=== PATIENT | female | born 1995 | race Caucasian/White ===

== ENCOUNTER 2017-08-08 18:08 | Emergency (ER) | payer OTHER ==
[~2017-08-08] VITALS: Wt 181.4 kg
[~2017-08-08 18:08] MED LIST: ALBUTEROL0.09 MG/A2 INH; BENTYL10 MG PO; CARAFATE1 G1 PO; CLARITIN-D 24 H1 T24 PO; CLARITIN10 MG PO; DYAZIDE PO; LISINOPRIL10 M1 PO; MOTRIN800 MG PO; PREDNICOT20 MG PO; PREVACID15 MG PO; PREVACID30 MG PO; PRILOSEC20 M1 PO; SUNMARK OMEPRAZ20 M1 PO; ZANTAC 150150 MG PO; ZITHROMAX Z PA250 MG PO; ZOFRAN ODT4 MG SL; ZOFRAN4 MG PO
[2017-08-08 18:15] VITALS: BP 142/87
[2017-08-08] MEDS ORDERED: OMEPRAZOLE DR 40 MG (18:15)
[2017-08-08] MEDS ORDERED: DICYCLOMINE HCL10 MG PO (18:15)
[2017-08-08] MEDS ORDERED: AMITRIPTYLINE25 MG PO (18:15)
[2017-08-08 19:04] LABS: BASO # 0.1 10*3/uL (0.0-0.1); BASO % 0.9 % (0.0-1.0); BILIRUBIN NEGATIVE (NEGATIVE); BLOOD TRACE-INTACT (NEGATIVE); CLARITY CLEAR (CLEAR); COLOR YELLOW (YELLOW); EOS % 0.1 % (1.0-4.0); GLUCOSE NEGATIVE (NEGATIVE); HEMATOCRIT 39.4 % (37.0-47.0); HEMOGLOBIN 12.3 g/dl (12.0-16.0); KETONE NEGATIVE (NEGATIVE); LEUKO ESTERASE NEGATIVE (NEGATIVE); LYMPH # 2.2 10*3/uL (1.3-4.4); LYMPH % 22.4 % (27.0-41.0); MEAN CELL VOLUME 82.9 fl (81.0-99.0); MEAN CORPUSCULAR HGB 25.9 pg (27.0-31.0); MEAN CORPUSCULAR HGB CONC 31.2 g/dl (33.0-37.0); MEAN PLATELET VOLUME 10.9 fl (9.6-12.3); MONO # 0.9 10*3/uL (0.1-1.0); MONO % 9.3 % (3.0-9.0); NEUT # 6.5 10*3/uL (2.3-7.9); NEUT % 66.9 % (47.0-73.0); NITRITE NEGATIVE (NEGATIVE); PH 5.5 (5.0-9.0); PLATELET COUNT AUTOMATED 273 10*3/uL (130-400); RED BLOOD COUNT 4.75 10*6/uL (4.10-5.10); RED CELL DISTRI WIDTH 13.7 % (0-14.5); SPECIFIC GRAVITY >= 1.030 (1.005-1.030); UROBILINOGEN 0.2 E.U./dl (0.2-1.0); WHITE BLOOD COUNT 9.7 10*3/uL (4.8-10.8)
[2017-08-08 19:13] LABS: BACTERIA 1+; EPITHELIAL CELLS 0-2
[2017-08-08 19:19] LABS: ALBUMIN 3.6 gm/dl (3.1-4.5); ALKALINE PHOSPHATASE 133 U/L (45-117); BUN 13 mg/dl (7-24); CHLORIDE 104 mmol/L (98-107); LIPASE 139 U/L (73-393); SGOT/AST 15 IU/L (3-35); SGPT/ALT 27 U/L (12-78); SODIUM 140 mmol/L (136-145); TOTAL PROTEIN 7.6 gm/dL (6.4-8.2)
[2017-08-08] MEDS ORDERED: ZOFRAN ODT4 MG SL (20:35)
== END 2017-08-08 20:41 | disposition home or self-care (01) ==
LOC: ED 18:08
PROVIDERS: Physician Assistant
DX: K52.9 Noninfective gastroenteritis and colitis, unspecified (principal); Z79.899 Other long term (current) drug therapy

== ENCOUNTER 2018-03-15 13:37 | Emergency (ER) | payer SELFPAY ==
[~2018-03-15] VITALS: Ht 182.8 cm; Wt 208.7 kg
[~2018-03-15 13:37] MED LIST changes: +AMITRIPTYLINE25 MG PO; +DICYCLOMINE HCL10 MG PO; +OMEPRAZOLE DR 40 MG
[2018-03-15 13:59] LABS: BASO # 0.1 10*3/uL (0.0-0.1); BASO % 1.2 % (0.0-1.0); EOS % 0.1 % (1.0-4.0); HEMATOCRIT 38.4 % (37.0-47.0); HEMOGLOBIN 11.9 g/dl (12.0-16.0); LYMPH # 2.1 10*3/uL (1.3-4.4); LYMPH % 23.5 % (27.0-41.0); MEAN PLATELET VOLUME 11.7 fl (9.6-12.3); MONO # 0.9 10*3/uL (0.1-1.0); MONO % 10.3 % (3.0-9.0); NEUT # 5.7 10*3/uL (2.3-7.9); NEUT % 64.1 % (47.0-73.0); PLATELET COUNT AUTOMATED 294 10*3/uL (130-400); RED BLOOD COUNT 4.57 10*6/uL (4.10-5.10); RED CELL DISTRI WIDTH 14.5 % (0-14.5); WHITE BLOOD COUNT 8.9 10*3/uL (4.8-10.8)
[2018-03-15 14:11] LABS: ALBUMIN 3.4 gm/dl (3.1-4.5); ALKALINE PHOSPHATASE 117 U/L (45-117); BUN 13 mg/dl (7-24); CHLORIDE 109 mmol/L (98-107); CREATININE 0.68 mg/dL (0.55-1.02); LIPASE 142 U/L (73-393); SGOT/AST 13 IU/L (3-35); SGPT/ALT 27 U/L (12-78); SODIUM 141 mmol/L (136-145)
[2018-03-15 14:16] LABS: BILIRUBIN NEGATIVE (NEGATIVE); BLOOD 3+ (NEGATIVE); CLARITY CLOUDY (CLEAR); COLOR YELLOW (YELLOW); GLUCOSE NEGATIVE (NEGATIVE); KETONE NEGATIVE (NEGATIVE); LEUKO ESTERASE NEGATIVE (NEGATIVE); NITRITE NEGATIVE (NEGATIVE); SPECIFIC GRAVITY 1.015 (1.005-1.030); UROBILINOGEN 0.2 E.U./dl (0.2-1.0)
[2018-03-15 14:26] LABS: BACTERIA 1+; EPITHELIAL CELLS 0-2; RBC TNTC rbc/hpf (0-2); WBC 0-2 wbc/hpf (0-5)
[2018-03-15 14:48] VITALS: BP 134/78
[2018-03-15] MEDS ORDERED: ZOFRAN ODT4 MG SL (15:15)
== END 2018-03-15 15:27 | disposition home or self-care (01) ==
LOC: ED 13:37
PROVIDERS: Nurse Practitioner Family
DX: R11.2 Nausea with vomiting, unspecified (principal); Z79.899 Other long term (current) drug therapy

== ENCOUNTER 2018-03-26 12:24 | Emergency (ER) | payer SELFPAY ==
[~2018-03-26] VITALS: Ht 182.8 cm; Wt 181.4 kg
[2018-03-26 12:26] VITALS: BP 147/122
[2018-03-26] MEDS ORDERED: NAPROSYN500 MG PO (13:20)
== END 2018-03-26 14:12 | disposition home or self-care (01) ==
LOC: ED 12:24
DX: S93.491A Sprain of other ligament of right ankle, initial encounter (principal); Z79.899 Other long term (current) drug therapy; X58.XXXA Exposure to other specified factors, initial encounter; Y93.89 Activity, other specified; Y92.89 Other specified places as the place of occurrence of the external cause; Y99.8 Other external cause status

== ENCOUNTER 2019-08-27 14:56 | Emergency (ER) | payer SELFPAY ==
[~2019-08-27] VITALS: Wt 136.1 kg
[~2019-08-27 14:56] MED LIST changes: +DELTASONE20 M1 PO; +NAPROSYN500 MG PO
[2019-08-27 15:21] LABS: BASO # 0.1 10*3/uL (0.0-0.1); BASO % 1.2 % (0.0-1.0); EOS % 0.1 % (1.0-4.0); HEMATOCRIT 37.9 % (37.0-47.0); HEMOGLOBIN 12.1 g/dl (12.0-16.0); LYMPH % 21.6 % (27.0-41.0); MEAN CELL VOLUME 83.7 fl (81.0-99.0); MEAN CORPUSCULAR HGB 26.7 pg (27.0-31.0); MEAN CORPUSCULAR HGB CONC 31.9 g/dl (33.0-37.0); MEAN PLATELET VOLUME 11.7 fl (9.6-12.3); MONO % 10.8 % (3.0-9.0); PLATELET COUNT AUTOMATED 268 10*3/uL (130-400); RED BLOOD COUNT 4.53 10*6/uL (4.10-5.10); RED CELL DISTRI WIDTH 14.4 % (0-14.5); WHITE BLOOD COUNT 9.2 10*3/uL (4.8-10.8)
[2019-08-27 15:25] VITALS: BP 121/81
[2019-08-27 15:35] LABS: ALBUMIN 3.2 gm/dl (3.1-4.5); ALKALINE PHOSPHATASE 102 U/L (45-117); BUN 14 mg/dl (7-24); CHLORIDE 107 mmol/L (98-107); CREATININE 0.87 mg/dL (0.55-1.02); SGOT/AST 12 IU/L (3-35); SGPT/ALT 24 U/L (12-78); SODIUM 137 mmol/L (136-145); TOTAL PROTEIN 7.3 gm/dL (6.4-8.2)
[2019-08-27 17:20] LABS: BILIRUBIN NEGATIVE (NEGATIVE); BLOOD 3+ (NEGATIVE); CLARITY CLOUDY (CLEAR); COLOR RED (YELLOW); GLUCOSE NEGATIVE (NEGATIVE); KETONE NEGATIVE (NEGATIVE); LEUKO ESTERASE NEGATIVE (NEGATIVE); NITRITE NEGATIVE (NEGATIVE); SPECIFIC GRAVITY 1.025 (1.005-1.030); UROBILINOGEN 0.2 E.U./dl (0.2-1.0)
[2019-08-27 17:21] LABS: RBC TNTC rbc/hpf (0-2)
== END 2019-08-27 17:54 | disposition home or self-care (01) ==
LOC: ED 14:56
PROVIDERS: Physician Assistant
DX: N93.8 Other specified abnormal uterine and vaginal bleeding (principal); R42 Dizziness and giddiness

== ENCOUNTER 2019-11-11 16:36 | Emergency (ER) | payer SELFPAY ==
[~2019-11-11] VITALS: Ht 182.8 cm; Wt 249.5 kg
[2019-11-11 17:01] LABS: BASO % 0.8 % (0.0-1.0); EOS # 0.1 10*3/uL (0.0-0.4); EOS % 2.1 % (1.0-4.0); HEMATOCRIT 37.1 % (37.0-47.0); HEMOGLOBIN 11.5 g/dl (12.0-16.0); LYMPH # 1.8 10*3/uL (1.3-4.4); MEAN CELL VOLUME 84.9 fl (81.0-99.0); MEAN CORPUSCULAR HGB 26.3 pg (27.0-31.0); MEAN PLATELET VOLUME 10.9 fl (9.6-12.3); MONO # 0.8 10*3/uL (0.1-1.0); MONO % 15.4 % (3.0-9.0); NEUT # 2.2 10*3/uL (2.3-7.9); NEUT % 45.5 % (47.0-73.0); PLATELET COUNT AUTOMATED 213 10*3/uL (130-400); RED BLOOD COUNT 4.37 10*6/uL (4.10-5.10); RED CELL DISTRI WIDTH 13.9 % (0-14.5); WHITE BLOOD COUNT 4.9 10*3/uL (4.8-10.8)
[2019-11-11 17:16] LABS: ALBUMIN 3.2 gm/dl (3.1-4.5); ALKALINE PHOSPHATASE 86 U/L (45-117); BUN 12 mg/dl (7-24); CHLORIDE 110 mmol/L (98-107); CREATININE 0.84 mg/dL (0.55-1.02); LIPASE 82 U/L (73-393); POTASSIUM 3.8 mmol/L (3.5-5.1); SGOT/AST 22 IU/L (3-35); SGPT/ALT 36 U/L (12-78); SODIUM 141 mmol/L (136-145)
[2019-11-11 17:19] LABS: BILIRUBIN NEGATIVE (NEGATIVE); BLOOD 3+ (NEGATIVE); CLARITY CLOUDY (CLEAR); COLOR YELLOW (YELLOW); GLUCOSE NEGATIVE (NEGATIVE); KETONE NEGATIVE (NEGATIVE); LEUKO ESTERASE NEGATIVE (NEGATIVE); NITRITE NEGATIVE (NEGATIVE); PH 5.5 (5.0-9.0); SPECIFIC GRAVITY 1.015 (1.005-1.030); UROBILINOGEN 0.2 E.U./dl (0.2-1.0)
[2019-11-11 17:27] LABS: RBC TNTC rbc/hpf (0-2); WBC 0-2 wbc/hpf (0-5)
[2019-11-11 17:28] LABS: BACTERIA TRACE; EPITHELIAL CELLS 0-2
[2019-11-11] MEDS ORDERED: ZOFRAN4 MG PO ×2 (18:23→18:55)
[2019-11-11 18:31] VITALS: BP 122/57
== END 2019-11-11 18:46 | disposition home or self-care (01) ==
LOC: ED 16:36
PROVIDERS: Nurse Practitioner Family
DX: A08.4 Viral intestinal infection, unspecified (principal); R11.2 Nausea with vomiting, unspecified; R19.7 Diarrhea, unspecified; K21.9 Gastro-esophageal reflux disease without esophagitis

== ENCOUNTER 2021-10-10 17:14 | Emergency (ER) | payer OTHER ==
[~2021-10-10] VITALS: Ht 182.8 cm; Wt 260.8 kg
[2021-10-10 18:14] LABS: BASO % 0.6 % (0.0-1.0); HEMATOCRIT 33.3 % (37.0-47.0); LYMPH # 2.1 10*3/uL (1.3-4.4); LYMPH % 39.8 % (27.0-41.0); MEAN CELL VOLUME 65.3 fl (81.0-99.0); MEAN CORPUSCULAR HGB 17.6 pg (27.0-31.0); MEAN PLATELET VOLUME 10.3 fl (9.6-12.3); MONO # 0.9 10*3/uL (0.1-1.0); MONO % 16.1 % (3.0-9.0); NEUT # 2.3 10*3/uL (2.3-7.9); NEUT % 43.3 % (47.0-73.0); PLATELET COUNT AUTOMATED 284 10*3/uL (130-400); WHITE BLOOD COUNT 5.3 10*3/uL (4.8-10.8)
[2021-10-10 18:18] LABS: BILIRUBIN Negative (Negative); BLOOD Negative (Negative); CLARITY Turbid (Clear); COLOR Yellow (Yellow); GLUCOSE Negative (Negative); KETONE Trace (Negative); LEUKO ESTERASE Negative (Negative); NITRITE Negative (Negative); SPECIFIC GRAVITY 1.025 (1.001-1.030); UROBILINOGEN 0.2 E.U./dl (0.0-1.0)
[2021-10-10 18:32] LABS: ALBUMIN 3.2 gm/dl (3.1-4.5); BUN 12 mg/dl (7-24); CHLORIDE 108 mmol/L (98-107); CREATININE 0.84 mg/dL (0.55-1.02); POTASSIUM 3.7 mmol/L (3.5-5.1); SGOT/AST 24 IU/L (3-35); SGPT/ALT 35 U/L (12-78); SODIUM 141 mmol/L (136-145)
[2021-10-10 18:34] LABS: ALKALINE PHOSPHATASE 105 U/L (45-117); TOTAL PROTEIN 7.7 gm/dL (6.4-8.2)
[2021-10-10 18:42] LABS: BACTERIA 4+; EPITHELIAL CELLS 21-30
[2021-10-10 21:31] VITALS: BP 129/63
== END 2021-10-10 21:45 | disposition home or self-care (01) ==
LOC: ED 17:14
PROVIDERS: Nurse Practitioner Family
DX: U07.1 COVID-19 (principal)

== ENCOUNTER 2022-04-09 19:56 | Emergency (ER) | payer OTHER ==
[~2022-04-09] VITALS: Ht 185.4 cm; Wt 246.3 kg
[2022-04-09 20:04] VITALS: BP 128/78
[2022-04-09] MEDS ORDERED: BENZONATATE100 M1 PO (20:35)
[2022-04-09] MEDS ORDERED: AMOXICILLIN500 M2 PO (20:35)
[2022-04-09] MEDS ORDERED: FLONASE ALLERG9.9 ML NAS (20:35)
== END 2022-04-09 20:40 | disposition home or self-care (01) ==
LOC: ED 19:56
DX: J32.8 Other chronic sinusitis (principal); Z90.89 Acquired absence of other organs

== ENCOUNTER 2023-01-11 12:58 | Emergency (ER) | payer OTHER ==
[~2023-01-11] VITALS: Ht 182.8 cm; Wt 254.0 kg
[~2023-01-11 12:58] MED LIST changes: +AMOXICILLIN500 M2 PO; +BENZONATATE100 M1 PO; +FLONASE ALLERG9.9 ML NAS
[2023-01-11 13:03] VITALS: BP 142/75
[2023-01-11] MEDS ORDERED: AMOX-CLAV 875-1 EACH PO (15:14)
== END 2023-01-11 15:22 | disposition home or self-care (01) ==
LOC: ED 12:58
DX: J32.8 Other chronic sinusitis (principal); Z90.89 Acquired absence of other organs

== ENCOUNTER 2025-03-22 16:38 | Emergency (ER) | payer OTHER ==
[~2025-03-22] VITALS: Ht 182.8 cm; Wt 235.2 kg
[~2025-03-22 16:38] MED LIST changes: +AMOX-CLAV 875-1 EACH PO
[2025-03-22] MEDS ORDERED: ACETAMINOPHEN 325 MG TAB PO ONE (18:20)
[2025-03-22 18:42] LABS: HEMATOCRIT 34.7 % (37.0-47.0); MEAN CELL VOLUME 72.3 fl (81.0-99.0); MEAN CORPUSCULAR HGB 21.5 pg (27.0-31.0); MEAN CORPUSCULAR HGB CONC 29.7 g/dl (33.0-37.0); MEAN PLATELET VOLUME 10.5 fl (9.6-12.3); PLATELET COUNT AUTOMATED 315 10*3/uL (130-400); RED CELL DISTRI WIDTH 16.8 % (0-14.5); WHITE BLOOD COUNT 16.1 10*3/uL (4.8-10.8)
[2025-03-22 18:43] LABS: MANUAL DIFF REFLEX YES
[2025-03-22] MEDS ORDERED: Albuterol Sulf/Ipratropium 3 ML VIAL NEB ONE (18:45)
[2025-03-22] MEDS ORDERED: methylPREDNISolone sod succ 125 MG VIAL IV ONE (18:45)
[2025-03-22 19:04] LABS: ALKALINE PHOSPHATASE 105 U/L (46-116); BUN 12 mg/dl (9-23); CHLORIDE 103 mmol/L (98-107); POTASSIUM 3.7 mmol/L (3.4-5.1); SGPT/ALT 13 U/L (5-49); TOTAL PROTEIN 7.6 gm/dL (6.0-8.0)
[2025-03-22 19:09] LABS: BASOPHILS 1 % (0-1); PLATELET SUFFICIENCY NORMAL (NORMAL); TOTAL CELLS COUNTED 100 #CELLS
[2025-03-22 19:10] LABS: MICROCYTOSIS SLIGHT; POLYCHROMASIA SLIGHT
[2025-03-22 20:06] VITALS: BP 123/55
[2025-03-22] MEDS ORDERED: MEDROL DOSEPAK4 MG PO (20:08)
[2025-03-22] MEDS ORDERED: AVPAK AZITHROM250 MG PO (20:08)
== END 2025-03-22 20:15 | disposition home or self-care (01) ==
LOC: ED 16:38
DX: J40 Bronchitis, not specified as acute or chronic (principal); K21.9 Gastro-esophageal reflux disease without esophagitis; Z20.822 Contact with and (suspected) exposure to COVID-19; Z79.899 Other long term (current) drug therapy

== ENCOUNTER 2025-11-04 11:41 | Emergency (ER) | payer OTHER ==
[~2025-11-04] VITALS: Ht 182.8 cm; Wt 244.9 kg
[~2025-11-04 11:41] MED LIST changes: +AVPAK AZITHROM250 MG PO; +MEDROL DOSEPAK4 MG PO
[2025-11-04 11:52] VITALS: BP 145/77
[2025-11-04] MEDS ORDERED: Motrin,Rufen800 MG PO (14:09)
== END 2025-11-04 14:33 | disposition home or self-care (01) ==
LOC: ED 11:41
DX: S83.92XA Sprain of unspecified site of left knee, initial encounter (principal); M79.662 Pain in left lower leg; K21.9 Gastro-esophageal reflux disease without esophagitis; W19.XXXA Unspecified fall, initial encounter; Y93.89 Activity, other specified; Y92.89 Other specified places as the place of occurrence of the external cause; Y99.8 Other external cause status